=== PATIENT | female | born 1955 | race Caucasian/White ===

== ENCOUNTER 2019-02-10 12:10 | Inpatient (IN) | payer MEDICARE, MEDICAID ==
[~2019-02-10] VITALS: Ht 162.6 cm; Wt 81.6 kg
--- NOTE | ~2019-02-10 | CON ---
[address] [address] CONSULTATION Name: HENRIETTA TUCKER Room: [address] IN M.R.#: [id number] Admission: 02/10/19 Attend Phys: Jadiel Russell MD Discharge: Date of : 51 Report #: [id number] THIS REPORT FOR: //name// CC: Jadiel DIGGSOTHY ADIS CHIEF COMPLAINT: Postoperative day 2 for resection of right distal fifth metatarsal for osteomyelitis and abscess. HISTORY OF PRESENT ILLNESS: The patient is on parenteral vancomycin with good tolerance. She has been afebrile with decreasing pain, good appetite. Surgical bone and tissue cultures are pending. Surgical pathology is also pending. She is doing physical therapy, partial weightbearing on the foot for transfers and short distances. No new labs for review. PHYSICAL EXAMINATION: The incision is well approximated along the lateral foot with no dehiscence, pallor or cyanosis. Small plantar wound inferior to the distal incision, which is packed with Aquacel Ag. No underlying fluctuance or crepitation. The foot is warm with palpable right dorsalis pedis and posterior tibial pulses. The inflammation is significantly decreased and fairly low grade centered around the distal plantar wound. No other lesions noted to the extremity. IMPRESSION: Osteomyelitis, right fifth metatarsal, status post-surgical resection. PLAN: The patient may ambulate partial weightbearing in a surgical shoe with walker assistance. She is to minimize ambulation and elevate the foot and maximize glycemic control and nutrition. Daily wound care to consist of packing plantar wound with Aquacel Ag and covering with ABDs, Kerlix and Temo wrap. I am awaiting surgical cultures and pathology for review. By: 0731 [id number] Hamilton DPM /nt
[2019-02-10] MEDS ORDERED: MIRALAX17 GM PO (13:15)
[2019-02-10] MEDS ORDERED: POTASSIUM20 PO (13:15)
[2019-02-10] MEDS ORDERED: OXYBUTYNIN 5 MG5 M2 PO (13:16)
[2019-02-10] MEDS ORDERED: CYMBALTA30 MG PO (13:17)
[2019-02-10] MEDS ORDERED: PROTONIX40 M1 PO (13:17)
[2019-02-10] MEDS ORDERED: TRAMADOL 50 MG50 MG PO (13:18)
[2019-02-10] MEDS ORDERED: LIORESAL 10 MG10 MG PO (13:19)
[2019-02-10] MEDS ORDERED: LIPITOR 20 MG T20 M1 PO (13:20)
[2019-02-10] MEDS ORDERED: COZAAR 25 MG TA25 M1 PO (13:20)
[2019-02-10] MEDS ORDERED: FAMOTIDINE 20 M20 MG PO (13:23)
[2019-02-10] MEDS ORDERED: INSULIN LI100 UNIT/1 IV (13:24)
[2019-02-10] MEDS ORDERED: LANTUSSOLASTAR SUBQ (13:26)
[2019-02-10 13:36] VITALS: BP 172/73
[2019-02-10 14:04] LABS: ABSOLUTE BASOPHILS 0.1 thou/uL (0.0-0.2); ABSOLUTE EOSINOPHILS 0.2 thou/uL (0.0-0.7); ABSOLUTE LYMPHOCYTES 1.6 thou/uL (0.8-5.3); ABSOLUTE NEUTROPHILS 9.7 thou/uL (1.6-8.1); BASOPHILS 0.4 %; EOSINOPHILS 1.6 %; HEMATOCRIT 32.7 % (37.0-47.0); HEMOGLOBIN 11.1 gm/dL (12.0-15.0); LYMPHOCYTES 12.7 %; MCH 30.3 pg (26.0-34.0); MCV 88.9 fL (80.0-100.0); MPV 7.9 fl. (7.2-11.1); NUCLEATED RBCS 0 /100WBC; PLATELET COUNT* 232 thou/uL (150-400); POLYS 77.3 %; RBC 3.68 mil/uL (4.20-5.00); RDW-CV 14.2 % (10.5-14.5); WBC 12.5 thou/uL (4.0-11.0)
[2019-02-10 14:25] LABS: ALBUMIN 3.2 g/dL (3.4-5.0); CALCIUM 9.2 mg/dL (8.5-10.1); CREATININE 0.7 mg/dL (0.6-1.3); POTASSIUM 3.8 mmol/L (3.5-5.1); TOTAL BILIRUBIN 0.5 mg/dL (<0.1-1.0); TOTAL PROTEIN 7.1 g/dL (6.4-8.2)
--- NOTE | 2019-02-10 18:47 | NUR ---
PATIENT ARRIVED TO UNIT AT APPROX 1230. ALERT AND ORIENTED X4. ADMISSION HISTORY AND ASSESSMENT COMPLETED AND CHARTED. VSS ON ROOM AIR. COMPLAINTS OF PAIN MANAGED WITH IV MORPHINE. NO COMPLAINTS OF NAUSEA OR SOA. PATIENT UP WITH ASSIST AND WALKER. IV ANTIBIOTICS INFUSED ORDERED. PATIENT TO HAVE SURGERY TOMORROW MORNING WITH DR VIRAMONTES. NPO AT MIDNIGHT. FALL PRECAUTIONS IN PLACE. CALL LIGHT WITHIN REACH. HOURLY ROUNDS COMPLETED. WILL CONTINUE TO MONITOR.
[2019-02-10 20:45] VITALS: BP 123/68
[2019-02-11 04:20] LABS: CALCIUM 8.9 mg/dL (8.5-10.1); CREATININE 0.9 mg/dL (0.6-1.3); POTASSIUM 3.9 mmol/L (3.5-5.1)
[2019-02-11 05:00] LABS: ABSOLUTE BASOPHILS 0.1 thou/uL (0.0-0.2); ABSOLUTE EOSINOPHILS 0.3 thou/uL (0.0-0.7); ABSOLUTE LYMPHOCYTES 2.4 thou/uL (0.8-5.3); ABSOLUTE MONOCYTES 0.8 thou/uL (0.0-1.2); ABSOLUTE NEUTROPHILS 5.9 thou/uL (1.6-8.1); BASOPHILS 0.5 %; EOSINOPHILS 3.1 %; HEMOGLOBIN 10.4 gm/dL (12.0-15.0); LYMPHOCYTES 25.4 %; MCH 30.1 pg (26.0-34.0); MCHC 33.5 g/dL (28.0-37.0); MONOCYTES 8.8 %; MPV 8.5 fl. (7.2-11.1); NUCLEATED RBCS 0 /100WBC; PLATELET COUNT* 233 thou/uL (150-400); POLYS 62.2 %; RBC 3.45 mil/uL (4.20-5.00); RDW-CV 14.3 % (10.5-14.5); WBC 9.4 thou/uL (4.0-11.0)
--- NOTE | 2019-02-11 05:44 | NUR ---
PATIENT HAS SLEPT OFF AND ON DURING THE NIGHT. VSS ON 2L 02 AT NIGHT. PATIENT HAS REMAINED NPO SINCE MIDNIGHT D/T SCHEDULED PROCEDURE THIS AM. IV IN LEFT HAND-SL. IV ABT GIVEN WITHOUT ANY ADVERSE SIDE EFFECTS NOTED. DRESSING TO RIGHT FOOT IS C/D/I. PATIENT INSTRUCTED TO USE CALL LIGHT WHEN NEEDING ASSISTANCE. HOURLY ROUNDS MADE. WILL CONTINUE WITH PLAN OF CARE AND NURSING TO MONITOR.
[2019-02-11 06:04] VITALS: BP 123/68
[2019-02-11 08:45] VITALS: BP 135/70
--- NOTE | 2019-02-11 08:45 | NUR ---
PT RETURNED FROM PACU. BULKY DRESSING TO RIGHT FOOT. PT VERBALIZES UNDERSTANDING FOR NWB TO RIGHT FOOT. SEE CHARTING. WILL CONTINUE TO MONITOR.
--- NOTE | 2019-02-11 09:39 | NUR ---
cm completed initial assessment. pt a&o. pt lives at home. her son lives home w/her, works evenings. her daughter and grandchildren are there often as well. pt is active & independent. has walker, cane and cpap. pt states she is having cpap brought to hospital. pt has no hx w/hh. stayed at [facility] for rehab after surgery in past. pt is opened to HH or SNF, need be. pt lives in [place]. cm to remain available to assist as needed.
[2019-02-11 16:06] VITALS: BP 157/69
[2019-02-11 19:30] VITALS: BP 141/61
[2019-02-12] VITALS: BP 155/63
[2019-02-12 03:56] VITALS: BP 114/59
--- NOTE | 2019-02-12 05:14 | NUR ---
PT ALERT AND ORIENTED. VITALS STABLE RA. MEDS GIVEN ORDERED. DRESSING TO RIGHT FOOT DRY AND INTACT. MORPHINE GIVEN FOR PAIN PER PT REQUEST. RT FOOT KEPT ELEVATED ON PILLOW. HOURLY ROUNDING COMPLETED. WILL CONTINUE TO MONITOR.
--- NOTE | 2019-02-12 09:17 | EKG ---
[place] [address] ELECTROCARDIOGRAM REPORT Name: HENRIETTA TUCKER Room: [address] ADM IN M.R.#: [id number] Admission: 02/10/19 Attend Phys: Jadiel Russell MD Discharge: Date of : 51 Report #: [id number] THIS REPORT FOR: //name// [facility] Test Date: 2019-02-11 Test Time: 06:41:38 Pat Name: HENRIETTA TUCKER Department: Room: [address] Gender: F Switchboard Operator: VAN : 1955 Requested By: Anthony Hamilton Order Number: [id number] Lisa MD: Kilo Rodrigues Measurements Intervals [place] Rate: 87 P: 50 UT: 159 QRS: -30 QRSD: 95 T: 38 QT: 368 QTc: 443 Interpretive Statements Sinus rhythm Left axis deviation Borderline low voltage, extremity leads Abnormal R-wave progression, late transition No previous ECG available for comparison Electronically Signed On 02-12-2019 9:17:10 CDT by Kilo Rodrigues [email or web address] <ELECTRONICALLY SIGNED> By: Kilo Rodrigues MD, [facility] 02/12/19 0917 0641 0641 Kilo Rodrigues MD, [facility] /EPI
--- NOTE | 2019-02-12 09:37 | CON ---
[address] [address] CONSULTATION Name: HENRIETTA TUCKER Room: [address] IN .R.#: [id number] Admission: 02/10/19 Attend Phys: Jadiel Russell MD Discharge: Date of : 51 Report #: [id number] THIS REPORT FOR: //name// CC: Jadiel Russell Anthony ARCEO DATE OF SERVICE: 02/11/2019 INFECTIOUS DISEASE CONSULTATION ATTENDING PHYSICIAN: Jadiel Russell M.D. REASON FOR CONSULTATION: Fifth right metatarsal chronic osteomyelitis. HISTORY OF PRESENT ILLNESS: Chart reviewed, the patient examined. This is a 63-year-old woman with history of diabetes mellitus type 2, previous right fifth metatarsal resection due to chronic osteomyelitis. Has had a chronic wound, followed by Podiatry. Recent imaging suggested relapse or recurrence. She was admitted to undergo surgical intervention. She has not had systemic illness. Denies any pulmonary or gastrointestinal-related complaints. She did undergo resection of the distal fifth metatarsal, incision and drainage of right foot skin flap. Cultures pending. Empirically started on therapy with vancomycin. ALLERGIES: None known. MEDICINES: Include potassium, oxybutynin, duloxetine, vancomycin, enoxaparin, losartan, insulin, atorvastatin, pantoprazole, hydralazine as needed, tramadol and analgesics. PAST MEDICAL HISTORY: As described above, diabetes mellitus, history of hypertension and left total knee arthroplasty. She has had previous vertebral surgery and amputation of right fifth toe. SOCIAL HISTORY: Nonsmoker, no ethanol, no illicit drug use. FAMILY HISTORY: Noncontributory. REVIEW OF SYSTEMS: Otherwise, unremarkable 10-point review of systems with exception of the above. PHYSICAL EXAMINATION: GENERAL: She is alert, cooperative, in mild distress, appears somewhat chronically ill. VITAL SIGNS: Temperature 98.9, pulse 90, respirations 18 and blood pressure is 157/69. [place] [address] CONSULTATION Name: HENRIETTA TUCKER Room: [address]#: [id number] Admission: 02/10/19 Attend Phys: Jadiel Russell MD Discharge: Date of : 51 Report #: [id number] SKIN: Warm, dry, no rashes. HEENT: Normocephalic. Extraocular muscles intact. NECK: Supple. LUNGS: Diminished breath sounds. HEART: Regular. I do not appreciate any murmur. ABDOMEN: Soft, nontender and nondistended. EXTREMITIES: No cyanosis. GENITOURINARY AND RECTAL: Deferred. LABORATORY DATA: Initial CBC: White count of 12.5, H and H 11.1 and 32.7 and platelets of 232. Lactic acid 0.8. Electrolytes: Sodium 137, potassium 3.8, chloride 102, bicarbonate 27, anion gap of 8, BUN and creatinine 27 and 0.7 and glucose of 195. LFTs, otherwise, unremarkable. Albumin 3.2 and total protein 7.1. Blood cultures sterile thus far. Path pending. ASSESSMENT: Chronic osteomyelitis. PLAN: Continue empiric therapy with the vancomycin. Await culture results. Await path report. Appears based on the operative report that the wound has healed primarily. Continue wound care and offloading and optimize nutritional status. Monitor expectantly for evidence of nosocomial-related infectious complications. <ELECTRONICALLY SIGNED> By: Alex Salcido MD 02/12/19 0937 1619 [id number] Salcido MD /nt
[2019-02-12 09:41] VITALS: BP 133/76
[2019-02-12 16:30] VITALS: BP 146/67
--- NOTE | 2019-02-12 19:00 | NUR ---
PATIENT PLEASANT AND COOPERATIVE W/ ASSESS AND CARES THIS SHIFT. UP TO BSC FOR TOILETING, NWB TO RLE. DRSG TO RLE NOTED CDI. SEE MAR. IV SITE NOTED WNL. RLE ELEVATED ORDERED. HRLY ROUNDING COMPLETED.
[2019-02-12 19:30] VITALS: BP 167/68
[2019-02-13] VITALS: BP 131/56
[2019-02-13 04:00] VITALS: BP 141/64
--- NOTE | 2019-02-13 05:48 | NUR ---
PT ALERT AND ORIENTED. VSS ON RA. ASSESSMENT DOCUMENTED. MEDS GIVEN PER EMAR. PT TO BSC WITH CANE. HOME CPAP AT HS. PAIN MEDS GIVEN THIS SHIFT. RELIEF NOTED. DRESSING TO LT LEG/FOOT C/D/I. FALL PRECAUTION IN PLACE. CALL LIGHT WITHIN REACH. HOURLY ROUNDINGS MADE. WILL CONTINUE TO MONITOR.
--- NOTE | 2019-02-13 07:37 | OP ---
[address] [address] OPERATIVE REPORT Name: HENRIETTA TUCKER Room: [address] IN .R#: [id number] Admission: 02/10/19 Attend Phys: Jadiel Russell MD Discharge: Date of : 51 Report #: [id number] THIS REPORT FOR: //name// CC: Jadiel ARCEO DATE OF SERVICE: 02/11/2019 SURGEON: Anthony Hamilton DPM. PREOPERATIVE DIAGNOSIS: Osteomyelitis with deep tissue infection, right fifth metatarsal. POSTOPERATIVE DIAGNOSIS: Osteomyelitis with deep tissue infection, right fifth metatarsal. PROCEDURES: 1. Resection of right distal fifth metatarsal. 2. Incision and drainage, right foot. 3. Skin flap, right foot. ANESTHESIA: General LMA. INJECTABLES: 30 mL of a 1:1 mixture of 0.5% Marcaine plain and 1% lidocaine plain. ESTIMATED BLOOD LOSS: Roughly 40 mL. SPECIMENS: Right fifth metatarsal. CULTURES: 1. Bone, right fifth metatarsal, aerobic and anaerobic. 2. Soft tissue, right foot, aerobic and anaerobic. SUTURES: 3-0 nylon. HEMOSTASIS: Right ankle pneumatic tourniquet at 275 mmHg. COMPLICATIONS: None. DESCRIPTION OF PROCEDURE: The patient was brought to the OR and placed on the table supine with induction of general LMA anesthesia. A well-padded right ankle pneumatic tourniquet was placed. A local anesthetic block was given proximal to the surgical site with the above mixture and the extremity was prepped and draped aseptically, and exsanguinated [place] [address] OPERATIVE REPORT Name: HENRIETTA TUCKER Room: [address] IN .R.#: [id number] Admission: 02/10/19 Attend Phys: Jadiel Russell MD Discharge: Date of : 51 Report #: [id number] tourniquet. A #10 blade was used to create a dorsal lateral incision over the right distal fifth metatarsal, down to the bone. Electrocautery was utilized for hemostasis. The soft tissue was dissected off the distal fifth metatarsal and the bone appeared to be lytic with some yellowish discoloration at the metatarsal neck and head region. I transected the metatarsal at the proximal aspect with a sagittal saw, and the bone was hard in this region with no clinical signs of infection. A desk representative portion of bone from the fifth metatarsal head was sent for culture and the remaining bone was sent for Pathology. Surrounding soft tissue was sent for culture as well. I debrided interior of the wound and used electrocautery. The wound was flushed with sterile saline with bacitracin and dried. Plantar lateral skin flap was mobilized dorsally and sutured with 3-0 nylon in simple interrupted fashion for complete closure of the incision. The plantar wound was measured roughly 1.0 x 1.0 cm. I packed it with Aquacel Ag and covered the incision with Aquacel Ag followed by fluffs, ABDs, Kerlix, and Temo bandage. Tourniquet was deflated and the patient left the OR with no pain or complications noted. <ELECTRONICALLY SIGNED> By: Anthony Hamilton DPM 02/13/19 0737 0804 [id number] Hamilton DPM /nt
[2019-02-13 07:50] VITALS: BP 150/74
--- NOTE | 2019-02-13 13:52 | NUR ---
LIZBETH faxed referral to pt preference of [facility] this morning based on safe dc planning recommendations/orders. LIZBETH spoke with Viki in admissions at swing bed and she requested more info on culture results and ID recommendations. LIZBETH faxed pending culture results and ID progress note. SW awaiting referral acceptance status and will continue to follow to assist with finalizing safe dc plan. [facility], Viki's ph number: [phone] fax: [phone]
--- NOTE | 2019-02-13 15:23 | NUR ---
RIGHT BASILIC VESSEL ACCESSED FOR SINGLE LUMEN PICC. LINE PRE-TRIMMED TO 39CM AND ADVANCED TO THE ZERO CHATO WITH NO RESISTANCE MET. UPPER ARM CIRCUMFERENCE ABOVE INSERTION SITE= 11 1/2". SHERLOCK MAGNET AND 3CG CONFIRMATION OF TIP TERMINATION AT THE CAVOATRIAL JUCNTION APPRECIATED. STYLET REMOVED, LINE FLUSHED AND INSERTION STIE DRESSED. REPORT GIVEN TO ISRAEL FELICIANO.
[2019-02-13] MEDS ORDERED: FORTEO750 MCG/3 SUBQ (15:29)
[2019-02-13 15:40] VITALS: BP 150/74
--- NOTE | 2019-02-13 17:06 | PATH ---
[address] [address] PATHOLOGY RPT PROCEDURE Name: HENRIETTA RADER Room: [address] IN .R.#: [id number] Admission: 02/10/19 Date of : 51 Discharge: Report #: [id number] Path Case #: [id number] L[facility] Accession Number: [id number] . 01 Material submitted: . foot - 5TH METATARSAL,RIGHT. Modifiers: right, fifth . 01 Clinical history: . Osteomyelitis . 02 Diagnosis: Fifth metatarsal right: - Benign osteocartilaginous segment with prominent osteomyelitis involving articular end, with opposite/transection margin free of involvement. - Extensive acute inflammation of attached soft tissues. (TATE:mml:db; 02/13/2019) QLM/02/13/2019 . 02 Electronically signed: . Wade Bolden MD, Pathologist NPI- [id number] . 01 Gross description: . The specimen is received in formalin, labeled "Henrietta Rader, fifth metatarsal, right". Received is a segment of bone measuring 3.8 x 1.3 x 1.0 cm in greatest dimensions. One margin is blunt in appearance, consistent with transection. The opposite margin displays a partial disarticulated surface on one half. The other half is jagged in appearance. The transected margin is inked black. A full-thickness longitudinal cross-section is submitted from proximal to distal aspects in cassettes A1 and A2, following decalcification. (CAA; 02/11/2019) QAC/QAC . 02 Pathologist provided ICD-10: M79.9 . 02 CPT . 507938, 956628 Specimen Comment: A courtesy copy of this report has been sent to Specimen Comment: [phone], , , . Specimen Comment: Report sent to ,DR JOHANSEN,DR ARCEO / DR COFFEY Performed at: [address] [id number] MD Marlon Andujar MD Phone: [phone] Performed at: [address] [place] [address] PATHOLOGY RPT PROCEDURE Name: HENRIETTA RADER Room: [address] IN M.R.#: [id number] Admission: 02/10/19 Date of : 51 Discharge: Report #: [id number] Path Case #: [id number] [address], [place], [place] [id number] MD Wade Bolden MD Phone: [phone]
--- NOTE | 2019-02-13 17:14 | NUR ---
ASSUMED CARE OF PATIENT AT APPROX 0730. ALERT AND ORIENTED X4. ASSESSMENT COMPLETED AND CHARTED. VSS ON ROOM AIR. PAIN MANAGED WITH ORAL AND IV PAIN MEDICATIONS. UP WITH STAND BY ASSIST AND CANE, USING BEDSIDE COMMODE. PICC LINE INSERTED TODAY FOR IV ANTIBIOTICS. PATIENT DISCHARGED AT 1700 WITH ALL PERSONAL BELONGINGS AND DISCHARGE PACKET. TRANSPORTED TO FACILITY VIA WHEELCHAIR VAN.
== END 2019-02-13 17:00 | disposition swing bed (61) | DRG 854 ==
LOC: M.ORTHSURG 12:10
PROVIDERS: ADMIT Internal Medicine
PROC: 0QTN0ZZ Resection of Right Metatarsal, Open Approach (ICD-10-PCS; principal; 2019-02-11)
PROC: 0HXMXZZ Transfer Right Foot Skin, External Approach (ICD-10-PCS; principal; 2019-02-11)
PROC: 0J9Q0ZZ Drainage of Right Foot Subcutaneous Tissue and Fascia, Open Approach (ICD-10-PCS; principal; 2019-02-11)
PROC: 05HY33Z Insertion of Infusion Device into Upper Vein, Percutaneous Approach (ICD-10-PCS; 2019-02-13)
DX: A41.9 Sepsis, unspecified organism (principal); M86.671 Other chronic osteomyelitis, right ankle and foot; Z79.899 Other long term (current) drug therapy; E11.69 Type 2 diabetes mellitus with other specified complication; I10 Essential (primary) hypertension; Z96.652 Presence of left artificial knee joint; H40.9 Unspecified glaucoma; K58.9 Irritable bowel syndrome, unspecified; L97.519 Non-pressure chronic ulcer of other part of right foot with unspecified severity; M19.90 Unspecified osteoarthritis, unspecified site; G47.33 Obstructive sleep apnea (adult) (pediatric); G89.29 Other chronic pain; Z89.421 Acquired absence of other right toe(s); Z79.4 Long term (current) use of insulin

== ENCOUNTER → 2019-03-11 | Outpatient (CLI) | payer MEDICARE, MEDICAID ==
[~2019-03-11] MED LIST: COZAAR 25 MG TA25 M1 PO; CYMBALTA30 MG PO; FAMOTIDINE 20 M20 MG PO; FORTEO750 MCG/3 SUBQ; INSULIN LI100 UNIT/1 IV; LANTUSSOLASTAR SUBQ; LIORESAL 10 MG10 MG PO; LIPITOR 20 MG T20 M1 PO; MIRALAX17 GM PO; OXYBUTYNIN 5 MG5 M2 PO; POTASSIUM20 PO; PROTONIX40 M1 PO; TRAMADOL 50 MG50 MG PO
--- NOTE | 2019-03-13 07:43 | CON ---
[address] [address] CONSULTATION Name: HENRIETTA TUCKER Room: [facility] Conrad.#: [id number] Admission: 03/11/19 Attend Phys: Anthony Hamilton DPM Discharge: Date of : 51 Report #: [id number] THIS REPORT FOR: //name// CC: Anthony Hamilton Alex TRIPLETTID DATE OF SERVICE: 03/12/2019 INFECTIOUS DISEASE CONSULTATION ATTENDING PHYSICIAN: Anthony Hamilton DPM. HISTORY OF PRESENT ILLNESS: She is here post-fifth metatarsal osteoectomy for chronic osteomyelitis. She underwent surgery roughly a month ago, not seen her in followup nor had Dr. Hamilton, been on a facility distance from [place]. Did review her results. She had culture-proven Pseudomonas. She had been on levofloxacin based on facility records, and then, there was some evidence she was started on gentamicin, although stated starting 03/11, but she said she had been on since her discharge. Did review her laboratory. She had a creatinine of 1.02 on 03/10. Denied any vestibular-type signs or complaints. Generally, the wound appears to be clean. There is no exposed hard tissue at this point. There is moderate degree of inflammation. It is unclear as to who has been taking care of it. ASSESSMENT AND PLAN: Chronic osteomyelitis. At this point, I would extend the levofloxacin. We will discontinue gentamicin. Repeat culture was undertaken, make sure we get weekly labs, CBC, CMP and sed rate including a BMP on Saturday as well. Wound care per Dr. Hamilton, offloading, optimize her nutritional status and see her in followup in one week. <ELECTRONICALLY SIGNED> By: Alex Salcido MD 03/13/19 0743 0858 1934Jocarmen Salcido MD /nt
== END ==
LOC: M.WC 12:56
DX: T87.81 Dehiscence of amputation stump (principal); E11.621 Type 2 diabetes mellitus with foot ulcer; L97.512 Non-pressure chronic ulcer of other part of right foot with fat layer exposed; E11.69 Type 2 diabetes mellitus with other specified complication; M86.8X7 Other osteomyelitis, ankle and foot; E11.39 Type 2 diabetes mellitus with other diabetic ophthalmic complication; H40.9 Unspecified glaucoma; E11.319 Type 2 diabetes mellitus with unspecified diabetic retinopathy without macular edema; E11.40 Type 2 diabetes mellitus with diabetic neuropathy, unspecified; E66.9 Obesity, unspecified; G47.30 Sleep apnea, unspecified; I10 Essential (primary) hypertension; K21.9 Gastro-esophageal reflux disease without esophagitis; Z79.4 Long term (current) use of insulin; Z68.30 Body mass index [BMI] 30.0-30.9, adult; Z96.642 Presence of left artificial hip joint; Y83.5 Amputation of limb(s) as the cause of abnormal reaction of the patient, or of later complication, without mention of misadventure at the time of the procedure

== ENCOUNTER → 2019-03-18 | Outpatient (CLI) | payer MEDICARE, MEDICAID | LOC: M.ULTRA 11:42 | DX: S90.921D Unspecified superficial injury of right foot, subsequent encounter (principal); E11.51 Type 2 diabetes mellitus with diabetic peripheral angiopathy without gangrene; X58.XXXD Exposure to other specified factors, subsequent encounter ==

== ENCOUNTER → 2019-03-18 | Outpatient (CLI) | payer MEDICARE, MEDICAID ==
--- NOTE | 2019-03-19 12:35 | CON ---
[address] [address] CONSULTATION Name: HENRIETTA TUCKER Room: [facility] José LuisSury#: [id number] Admission: 03/18/19 Attend Phys: Anthony Hamilton DPM Discharge: Date of : 51 Report #: [id number] THIS REPORT FOR: //name// CC: Anthony ARCEO DATE OF SERVICE: 03/18/2019 INFECTIOUS CONSULTATION FOLLOWUP HISTORY OF PRESENT ILLNESS: She is seen in the outpatient [facility] at [facility]. She returns today in followup. She has been discharged to her home. She is undergoing wound care with sister's assistance. She generally feels somewhat better, although she has complained of recent she describes as vertigo. This has led 2 falls as she has been home. She has not had significant GI related complaints. Evaluate the wound appears to be better, overall less degree of inflammation, Dr. Hamilton debrided it. There is no exposed hard tissue. It is notable she is on levofloxacin at this point. ASSESSMENT AND PLAN: Osteomyelitis involving the lateral specifically the fifth metatarsal partial osteoectomy. At this point given the concern about adverse drug effects, we will discontinue the Levaquin. It is notable that creatinine was 1.1 when the gentamicin was discontinued last week. There is certainly the concern about this as well. She is to call the Wound Care based on how she is doing as the antibiotics being held for course of next several days. We will see her in followup. <ELECTRONICALLY SIGNED> By: Alex Salcido MD 03/19/19 1235 0846 0905Josenaomi Salcido MD /nt
== END ==
LOC: M.WC 05:11
DX: T87.81 Dehiscence of amputation stump (principal); E11.621 Type 2 diabetes mellitus with foot ulcer; L97.512 Non-pressure chronic ulcer of other part of right foot with fat layer exposed; E11.69 Type 2 diabetes mellitus with other specified complication; M86.8X7 Other osteomyelitis, ankle and foot; E11.39 Type 2 diabetes mellitus with other diabetic ophthalmic complication; H40.9 Unspecified glaucoma; E11.319 Type 2 diabetes mellitus with unspecified diabetic retinopathy without macular edema; E11.40 Type 2 diabetes mellitus with diabetic neuropathy, unspecified; E66.9 Obesity, unspecified; G47.30 Sleep apnea, unspecified; I10 Essential (primary) hypertension; Z96.652 Presence of left artificial knee joint; Z68.30 Body mass index [BMI] 30.0-30.9, adult; Y83.5 Amputation of limb(s) as the cause of abnormal reaction of the patient, or of later complication, without mention of misadventure at the time of the procedure

== ENCOUNTER → 2019-03-25 | Outpatient (CLI) | payer MEDICARE, MEDICAID ==
--- NOTE | 2019-03-26 11:26 | CON ---
[address] [address] CONSULTATION Name: HENRIETTA TUCKER Room: [facility]#: [id number] Admission: 03/25/19 Attend Phys: Anthony Hamilton DPM Discharge: Date of : 51 Report #: [id number] THIS REPORT FOR: //name// CC: Anthony ARCEO DATE OF SERVICE: 03/25/2019 ATTENDING PHYSICIAN: Anthony Koehler. HISTORY OF PRESENT ILLNESS: She is here today for followup of deep foot infection involving the right lateral foot, status post surgical debridement. She continues to have issues with what she describes as vertigo, although she states she is comfortable lying flat, primarily involved when she comes upright. She occasionally has some nausea as well associated with this. She was evaluated in the Emergency Room, was otherwise unremarkable testing. She has not been treated symptomatically thus far. She does note she has had previous history of similar fevers. Appetite has been generally unremarkable. Significant pulmonary or gastrointestinal complaints. On examination, the foot appears improved. There is overall less inflammation. On examination, per Dr. Koehler there is no exposed bone. ASSESSMENT AND PLAN: Chronic right lateral foot wound. At this point, would not extend the antibiotics. It has been on there for several days. She has been seen in followup, perhaps needs ENT evaluation, seems less likely that the Levaquin would be a cause of this and that has been going on for 2 weeks. Continue evaluation with symptomatic treatment. We will see her in 1 week. <ELECTRONICALLY SIGNED> By: Alex Salcido MD 03/26/19 1126 2034 0054Josenaomi Salcido MD /nt
== END ==
LOC: M.WC 04:49
DX: T87.89 Other complications of amputation stump (principal); E11.621 Type 2 diabetes mellitus with foot ulcer; L97.512 Non-pressure chronic ulcer of other part of right foot with fat layer exposed; E11.39 Type 2 diabetes mellitus with other diabetic ophthalmic complication; H40.9 Unspecified glaucoma; E11.319 Type 2 diabetes mellitus with unspecified diabetic retinopathy without macular edema; E11.40 Type 2 diabetes mellitus with diabetic neuropathy, unspecified; I10 Essential (primary) hypertension; G47.30 Sleep apnea, unspecified; Y83.5 Amputation of limb(s) as the cause of abnormal reaction of the patient, or of later complication, without mention of misadventure at the time of the procedure

== ENCOUNTER → 2019-04-01 | Outpatient (CLI) | payer MEDICARE, MEDICAID ==
--- NOTE | 2019-04-02 12:47 | CON ---
[address] [address] CONSULTATION Name: HENRIETTA TUCKER Room: [facility].#: [id number] Admission: 04/01/19 Attend Phys: Anthony Hamilton DPM Discharge: Date of : 51 Report #: [id number] THIS REPORT FOR: //name// CC: Anthony Hamilton ROSALBA ARCEO DATE OF SERVICE: 04/01/2019 INFECTIOUS DISEASE CONSULTATION ATTENDING PHYSICIAN: Anthony Koehler DPM HISTORY OF PRESENT ILLNESS: She is here for ongoing treatment for lateral wound. She had a deep infection involving the site, had completed course of antimicrobial therapy at this point. She generally has ongoing issues with her sense of lightheadedness, describes it really positional, not somewhat symptomatic when she is supine, or even sitting to some extent that she has not had a hearing loss, but she is quite unstable and she tries to go from sitting to standing or in some cases watching television, etc. She has had intermittent nausea that she associated with as well. She has not had fevers. PHYSICAL EXAMINATION: On examination, the wound continues to improve. ASSESSMENT AND PLAN: Chronic foot ulcer. At this point, there are no plans for any additional antibiotics. She was given a prescription for some meclizine and see if she would get treated symptomatically. She noted she had an episode in the past. She had been referred to Otolaryngology as well. We will be available as needed. <ELECTRONICALLY SIGNED> By: Alex Salcido MD 04/02/19 1247 0846 0901Josenaomi Salcido MD /nt
== END ==
LOC: M.WC 04:45
DX: T87.89 Other complications of amputation stump (principal); E11.621 Type 2 diabetes mellitus with foot ulcer; L97.512 Non-pressure chronic ulcer of other part of right foot with fat layer exposed; E11.319 Type 2 diabetes mellitus with unspecified diabetic retinopathy without macular edema; E11.39 Type 2 diabetes mellitus with other diabetic ophthalmic complication; H40.9 Unspecified glaucoma; E11.42 Type 2 diabetes mellitus with diabetic polyneuropathy; E66.9 Obesity, unspecified; G47.30 Sleep apnea, unspecified; I10 Essential (primary) hypertension; Z68.30 Body mass index [BMI] 30.0-30.9, adult; Y83.5 Amputation of limb(s) as the cause of abnormal reaction of the patient, or of later complication, without mention of misadventure at the time of the procedure

== ENCOUNTER → 2019-04-08 | Outpatient (CLI) | payer MEDICARE, MEDICAID | LOC: M.WC 05:26 | DX: T87.89 Other complications of amputation stump (principal); E11.621 Type 2 diabetes mellitus with foot ulcer; L97.512 Non-pressure chronic ulcer of other part of right foot with fat layer exposed; E11.319 Type 2 diabetes mellitus with unspecified diabetic retinopathy without macular edema; E11.42 Type 2 diabetes mellitus with diabetic polyneuropathy; E11.39 Type 2 diabetes mellitus with other diabetic ophthalmic complication; H40.9 Unspecified glaucoma; E11.69 Type 2 diabetes mellitus with other specified complication; M86.8X7 Other osteomyelitis, ankle and foot; E66.9 Obesity, unspecified; G47.30 Sleep apnea, unspecified; I10 Essential (primary) hypertension; K21.9 Gastro-esophageal reflux disease without esophagitis; Z68.30 Body mass index [BMI] 30.0-30.9, adult; Y83.5 Amputation of limb(s) as the cause of abnormal reaction of the patient, or of later complication, without mention of misadventure at the time of the procedure ==

== ENCOUNTER → 2019-04-22 | Outpatient (CLI) | payer MEDICARE, MEDICAID | LOC: M.WC 04:00 | DX: E11.621 Type 2 diabetes mellitus with foot ulcer (principal); L97.512 Non-pressure chronic ulcer of other part of right foot with fat layer exposed; E11.39 Type 2 diabetes mellitus with other diabetic ophthalmic complication; H40.9 Unspecified glaucoma; E11.319 Type 2 diabetes mellitus with unspecified diabetic retinopathy without macular edema; E11.69 Type 2 diabetes mellitus with other specified complication; M86.8X7 Other osteomyelitis, ankle and foot; E11.40 Type 2 diabetes mellitus with diabetic neuropathy, unspecified; G47.30 Sleep apnea, unspecified; I10 Essential (primary) hypertension ==

== ENCOUNTER → 2019-04-29 | Outpatient (CLI) | payer MEDICARE, MEDICAID | LOC: M.WC 05:30 | DX: E11.621 Type 2 diabetes mellitus with foot ulcer (principal); L97.511 Non-pressure chronic ulcer of other part of right foot limited to breakdown of skin; E11.69 Type 2 diabetes mellitus with other specified complication; M86.8X7 Other osteomyelitis, ankle and foot; E11.39 Type 2 diabetes mellitus with other diabetic ophthalmic complication; H40.9 Unspecified glaucoma; E11.319 Type 2 diabetes mellitus with unspecified diabetic retinopathy without macular edema; E11.40 Type 2 diabetes mellitus with diabetic neuropathy, unspecified; G47.30 Sleep apnea, unspecified; I10 Essential (primary) hypertension ==

== ENCOUNTER → 2019-05-06 | Outpatient (CLI) | payer MEDICARE, MEDICAID | LOC: M.WC 03:19 | DX: T87.89 Other complications of amputation stump (principal); E11.621 Type 2 diabetes mellitus with foot ulcer; L97.512 Non-pressure chronic ulcer of other part of right foot with fat layer exposed; E11.39 Type 2 diabetes mellitus with other diabetic ophthalmic complication; H40.9 Unspecified glaucoma; E11.319 Type 2 diabetes mellitus with unspecified diabetic retinopathy without macular edema; E11.40 Type 2 diabetes mellitus with diabetic neuropathy, unspecified; E11.69 Type 2 diabetes mellitus with other specified complication; M86.8X7 Other osteomyelitis, ankle and foot; G47.30 Sleep apnea, unspecified; I10 Essential (primary) hypertension; Y83.5 Amputation of limb(s) as the cause of abnormal reaction of the patient, or of later complication, without mention of misadventure at the time of the procedure ==

== ENCOUNTER → 2019-05-13 | Outpatient (CLI) | payer MEDICARE, MEDICAID | LOC: M.WC 05:02 | DX: T87.89 Other complications of amputation stump (principal); E11.69 Type 2 diabetes mellitus with other specified complication; M86.8X7 Other osteomyelitis, ankle and foot; E11.42 Type 2 diabetes mellitus with diabetic polyneuropathy; E11.39 Type 2 diabetes mellitus with other diabetic ophthalmic complication; H40.9 Unspecified glaucoma; E11.319 Type 2 diabetes mellitus with unspecified diabetic retinopathy without macular edema; I87.2 Venous insufficiency (chronic) (peripheral); I10 Essential (primary) hypertension; G47.30 Sleep apnea, unspecified; Y83.5 Amputation of limb(s) as the cause of abnormal reaction of the patient, or of later complication, without mention of misadventure at the time of the procedure ==

== ENCOUNTER → 2019-05-20 | Outpatient (CLI) | payer MEDICARE, MEDICAID | LOC: M.WC 04:57 | DX: T87.89 Other complications of amputation stump (principal); E11.621 Type 2 diabetes mellitus with foot ulcer; L97.511 Non-pressure chronic ulcer of other part of right foot limited to breakdown of skin; E11.39 Type 2 diabetes mellitus with other diabetic ophthalmic complication; H40.9 Unspecified glaucoma; E11.319 Type 2 diabetes mellitus with unspecified diabetic retinopathy without macular edema; E11.40 Type 2 diabetes mellitus with diabetic neuropathy, unspecified; E66.9 Obesity, unspecified; G47.30 Sleep apnea, unspecified; I87.2 Venous insufficiency (chronic) (peripheral); I10 Essential (primary) hypertension; Z68.30 Body mass index [BMI] 30.0-30.9, adult; Y83.5 Amputation of limb(s) as the cause of abnormal reaction of the patient, or of later complication, without mention of misadventure at the time of the procedure ==

== ENCOUNTER → 2019-05-27 | Outpatient (CLI) | payer MEDICARE, MEDICAID | LOC: M.WC 05:42 | DX: E11.621 Type 2 diabetes mellitus with foot ulcer (principal); L97.511 Non-pressure chronic ulcer of other part of right foot limited to breakdown of skin; E11.40 Type 2 diabetes mellitus with diabetic neuropathy, unspecified; E11.69 Type 2 diabetes mellitus with other specified complication; M86.8X7 Other osteomyelitis, ankle and foot; E11.39 Type 2 diabetes mellitus with other diabetic ophthalmic complication; H40.9 Unspecified glaucoma; E11.319 Type 2 diabetes mellitus with unspecified diabetic retinopathy without macular edema; I87.2 Venous insufficiency (chronic) (peripheral); I10 Essential (primary) hypertension; G47.30 Sleep apnea, unspecified; K21.9 Gastro-esophageal reflux disease without esophagitis ==